=== PATIENT | male | born 1990 | race Hispanic/Latino ===

== ENCOUNTER → 2020-01-25 08:09 | Outpatient (CLI) | payer OTHER, SELFPAY ==
--- NOTE | 2020-01-25 | DI.RAD.S_ITS ---
PROCEDURE: FL SHOULDER INJECTION MR/CT RT INDICATIONS: PAIN IN RIGHT SHOULDER TECHNIQUE: The indications, alternatives, benefits, risks, and complications of the procedure were explained to the patient. Written informed consent was obtained and placed in the chart. The shoulder was examined fluoroscopically and a site for needle placement chosen for entry into the glenohumeral joint from an anterior approach. The skin was prepped and draped in a sterile fashion, and 1% lidocaine infiltrated from skin down to joint capsule. A spinal needle was inserted into the glenohumeral joint, and a small amount of iodinated contrast media injected to confirm intra-articular placement of the needle tip. This was followed by approximately 12 mL dilute solution of a gadolinium containing MR contrast agent. The needle was removed and a dressing was applied. The patient was given postprocedural instructions and sent to the MR suite for MR imaging. FINDINGS: A single fluoroscopic spot image demonstrates intra-articular location of injected iodinated contrast. IMPRESSION: Successful fluoroscopically guided administration of dilute Gadolinium solution into the shoulder joint for MR arthrogram. Dictated by: Amelia Deutsch MD, PhD on 01/25/2020 at 9:08 Approved by: Amelia Deutsch MD, PhD on 01/25/2020 at 9:08
--- NOTE | 2020-01-25 | DI.MRI.S_ITS ---
PROCEDURE: MR SHOULDER RT W CON INDICATIONS: RIGHT SHOULDER PAIN TECHNIQUE: After the administration of 12 mL of dilute intra-articular Gadolinium contrast, oblique coronal T1 and T2 spin echo with fat saturation, oblique sagittal T1 spin echo with and without fat saturation, oblique sagittal T2 fast spin echo with fat saturation, axial T1 spin echo with fat saturation through the shoulder. COMPARISON: None. FINDINGS: Image quality: Excellent. Rotator cuff: Partial thickness slit-like tear at the footprint of the supraspinatus tendon for example image /, 04/09. No definite full-thickness defect is seen. There is background tendinopathy. Infraspinatus tendinopathy with low-grade bursal surface fraying. The teres minor appears intact. Subscapularis tendon appears intact. No atrophy of the rotator cuff muscles. Bones and bursae: No bone marrow contusions or fractures. Mild acromioclavicular joint degeneration. Acromion demonstrates conventional anatomy, without an os acromiale. No subacromial-subdeltoid bursitis. Capsule and soft tissues: Labrum: Anteroinferior labral tear is seen. There is adjacent glenoid segmental sclerosis and spurring. Long head of the biceps tendon intact. The rotator interval appears normal, without fibrosis. Coracohumeral ligament intact although appears thickened raising the possibility of age-indeterminate sprain. 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 Supraspinatus tendinopathy with partial thickness slit-like tear at the footprint. Background supraspinatus tendinopathy Infraspinatus tendinopathy with low-grade bursal surface fraying Sprain of the coracohumeral ligament, technically age indeterminate. Dictated by: Ezequiel Aguirre M.D. on 01/25/2020 at 9:56 Approved by: Ezequiel Aguirre M.D. on 01/25/2020 at 10:04
== END ==
DX: M25.511 Pain in right shoulder (principal); M75.111 Incomplete rotator cuff tear or rupture of right shoulder, not specified as traumatic; S43.491A Other sprain of right shoulder joint, initial encounter; S43.411A Sprain of right coracohumeral (ligament), initial encounter
CPT/HCPCS: 23350; 73222; 77002